=== PATIENT | female | born 1945 | race Caucasian/White ===

== ENCOUNTER 2019-04-04 18:27 | Emergency (ER) | payer BC ==
[~2019-04-04] VITALS: Ht 157.5 cm; Wt 58.7 kg
[2019-04-04 18:52] VITALS: BP 164/51
--- NOTE | 2019-04-04 19:04 | NUR ---
C/O ANTHONY HIP PAIN RADIATING TO BACK OF THIGHS X 4 DAYS. DENIES TRAUNMA. HR 52 AT THIS TIME. BLOOD SUGAR 210. MED HX: DM .
[2019-04-04] MEDS ORDERED: KETOROLAC 15 MG/ML VIAL IM ONE (19:50)
--- NOTE | 2019-04-04 20:35 | NUR ---
PT STATES PAIN OF 5/10 AFTER PAIN MEDICATION GIVEN. PT POSITIONED FOR COMFORT, RESTING COMFORTABLY, VSS.
[2019-04-04 21:56] VITALS: BP 154/74
== END 2019-04-04 21:56 | disposition home or self-care (01) ==
LOC: MED 18:27
DX: M54.5 Low back pain (principal); G89.29 Other chronic pain; M19.90 Unspecified osteoarthritis, unspecified site; I10 Essential (primary) hypertension; E11.9 Type 2 diabetes mellitus without complications
CPT/HCPCS: 81002; 82948; 96372; 99283; J1885